=== PATIENT | female | born 1980 | race Caucasian/White ===

== ENCOUNTER 2016-11-07 10:34 | Day surgery (SDC) | payer OTHER ==
[2016-11-07] MEDS ORDERED: DOXYCYCLINE INJ 100 MG in NS 250 ML IV ONE (11:30)
[2016-11-07] MEDS ORDERED: MIDAZOLAM 2 MG/2 ML VIAL ONE (12:07)
[2016-11-07] MEDS ORDERED: PROPOFOL/EMULSION 500 MG/50 ML BOTTLE IV ONE (16:25)
[2016-11-07] MEDS ORDERED: ACETAMINOPHEN 325 MG TAB PO PRN (16:26)
[2016-11-07] MEDS ORDERED: HYDROCODONE/APAP 5/325 TAB PO PRN (16:26)
[2016-11-07] MEDS ORDERED: ONDANSETRON 4 MG/2 ML VIAL IVP PRN (16:26)
[2016-11-07] MEDS ORDERED: fentaNYL 100 MCG/2 ML INJ ONE (16:26)
[2016-11-07] MEDS ORDERED: LR 1,000 ML IV SCH (16:30)
[2016-11-07] MEDS ORDERED: ONDANSETRON 4 MG/2 ML VIAL ONE (16:43)
[2016-11-07] MEDS ORDERED: DEXAMETHASONE 4 MG/ML VIAL ONE ×2 (16:43)
[2016-11-07] MEDS ORDERED: LIDOCAINE 2% 5 ML SDV ONE (16:46)
[2016-11-07] MEDS ORDERED: KETOROLAC 30 MG/1 ML SDV ONE (16:55)
--- NOTE | 2016-11-07 18:27 | GOP ---
[f rep st] OPERATIVE REPORT DATE OF OPERATION: 11/07/2016 SURGEON: Lyudmila Gary MD COMPUTING CONSULTANT: None. ANESTHESIA: General. PREOPERATIVE DIAGNOSIS: Blighted ovum. POSTOPERATIVE DIAGNOSIS: Blighted ovum. PROCEDURE PERFORMED: Suction dilation and curettage. FINDINGS: 1. Exam under anesthesia revealed an anteverted uterus and no adnexal masses. 1. Intraoperative findings revealed tissue removed from the uterus that appeared grossly consistent with products of conception. 2. SPECIMENS: Uterine contents. ESTIMATED BLOOD LOSS: Less than 10 cc. INDICATIONS: The patient is a 36-year-old 1, para 0 female at 9 weeks and 4 days estimated gestational age by last menstrual period, who presented for a visit on 10/31/2016, and was found to have a blighted ovum with an empty gestational sac measuring 13.7 mm with no yolk sac or pole seen. Her quantitative hCG fell and she decided to proceed with surgical management with a D and C. She had no new complaints since that time. DESCRIPTION OF PROCEDURE: The patient was taken to the operating room, where general anesthesia was found to be adequate. Patient was prepared and draped in the normal sterile fashion in the dorsal lithotomy position. A weighted speculum was placed and a Aguilar retractor used to visualize the cervi x clearly. The anterior lip was grasped with a single-tooth tenaculum and the cervix was gently dil ated up to 7.5 mm using Hegar dilators with no immediate complications. A 7 mm rigid curved suction curette was then placed onto the suction tubing and the suction was noted to be adequate at 60 mmHg . The suction curette was then placed into the cervix into the uterine cavity and rotated to clear the uterus of all tissue, clots, and debris. The suction curette was removed and a sharp curettage was performed with a gritty texture noted circumferentially. A repeat suction curettage was perform ed and no additional blood or clot or tissue was noted. The suction curette was removed and no acti ve bleeding or heavy bleeding was noted. The tenaculum was removed and hemostasis was obtained with silver nitrate. All sponge and lap counts were correct x2. Patient was transferred to the PACU in stable and good c ondition. COMPLICATIONS: None. DRAINS: None. IV FLUIDS: 800 cc. URINE OUTPUT: None, as patient voided immediately prior to procedure. /[id number]/MODL
== END 2016-11-07 18:20 | disposition home or self-care (01) ==
LOC: FSGY 10:34 → FOBOP 18:20
PROVIDERS: ATTEND Obstetrics & Gynecology
PROC: 10D17ZZ Extraction of Products of Conception, Retained, Via Natural or Artificial Opening (ICD-10-PCS; principal; 2016-11-07)
DX: O02.0 Blighted ovum and nonhydatidiform mole (principal)
CPT/HCPCS: J1100; J1885; J2250; J2405; J2704; J3010

== ENCOUNTER → 2017-07-29 | Outpatient (CLI) | payer OTHER | LOC: FIMAGING 14:36 | PROVIDERS: ATTEND Obstetrics & Gynecology | DX: O09.521 Supervision of elderly multigravida, first trimester (principal); Z3A.13 13 weeks gestation of pregnancy ==

== ENCOUNTER → 2017-09-11 | Outpatient (CLI) | payer OTHER | LOC: FIMAGING 08:01 | PROVIDERS: ATTEND Obstetrics & Gynecology | DX: O09.522 Supervision of elderly multigravida, second trimester (principal); Z3A.19 19 weeks gestation of pregnancy ==

== ENCOUNTER → 2017-10-02 | Outpatient (CLI) | payer OTHER | LOC: FIMAGING 12:20 | PROVIDERS: ATTEND Obstetrics & Gynecology | DX: O09.522 Supervision of elderly multigravida, second trimester (principal); Z3A.22 22 weeks gestation of pregnancy ==